=== PATIENT | female | born 1950 | race Caucasian/White ===

== ENCOUNTER 2019-09-02 02:52 | Emergency (ER) | payer OTHER ==
[~2019-09-02] VITALS: Ht 172.7 cm; Wt 98.4 kg
[2019-09-02 02:55] VITALS: BP 151/56; Ht 172.7 cm; Wt 98.4 kg
== END 2019-09-02 04:06 | disposition home or self-care (01) ==
LOC: ED 02:52
DX: R05 Cough (principal); R06.02 Shortness of breath; R07.89 Other chest pain; I10 Essential (primary) hypertension; Z98.890 Other specified postprocedural states; Z90.710 Acquired absence of both cervix and uterus
CPT/HCPCS: J7512; J7613; J7644